=== PATIENT | male | born 1950 | race Caucasian/White ===

== ENCOUNTER 2016-09-19 22:02 | Inpatient (IN) | payer OTHER, BC ==
[~2016-09-19] VITALS: Ht 175.3 cm; Wt 82.2 kg
[~2016-09-19 22:02] MED LIST: FLOMAX0.4 MG PO; PERCOCET 5/31 TABLET PO; ZOFRAN4 MG PO
[2016-09-19 23:21] LABS: ADD MIUA? NO; BILIRUBIN NEGATIVE; BLOOD NEGATIVE; COLOR YELLOW ((YELLOW)); GLUCOSE (STRIP) 50; KETONES NEGATIVE; LEUKOCYTES NEGATIVE; NITRITE NEGATIVE; PROTEIN (STRIP) 30; SPECIFIC GRAVITY 1.011 (1.000-1.030); UCUL ADDED? NO; UROBILINOGEN 0.2 MG/DL (0.2-1.0)
[2016-09-20 00:34] LABS: EOSINOPHIL (%) 0.5 % (0-5); HEMATOCRIT 27.4 % (38.0-50.0); IMMATURE GRANULOCYTE (%) 1.3 % (0.0-0.7); IMMATURE GRANULOCYTE COUNT 0.1 K/uL; INSTRUMENT ABS NEUTROPHIL CT 6.2 K/uL; LYMPHOCYTE COUNT 1.5 K/uL (1.0-2.8); MCH 31.8 PG (29.0-34.0); MCHC 34.7 G/DL (30.0-36.0); MCV 91.6 FL (86-99); MEAN PLAT.VOLUME 9.8 uM^3 (9.0-12.4); MONOCYTE (%) 9.4 % (3-12); MONOCYTE COUNT 0.8 K/uL (0-0.8); NEUTROPHIL COUNT 6.2 K/uL (1.8-6.4); PLATELET COUNT 180 K/uL (156-360); RBC DIS.WIDTH-CV 11.4 % (11.8-14.6); RBC DIS.WIDTH-SD 38.5 % (39-53); RED BLOOD COUNT 2.99 M/uL (4.00-5.50); WHITE BLOOD COUNT 8.7 K/uL (4.1-10.2)
[2016-09-20 00:44] LABS: CHLORIDE 102 mEq/L (99-109); INTER. NORMALIZED RATIO 1.1; POTASSIUM 3.9 mEq/L (3.7-5.4); PTT 26.8 (25-32); SODIUM 133 mEq/L (136-147)
[2016-09-20 00:46] LABS: GLUCOSE 170 mg/dL (70-99)
[2016-09-20 00:48] LABS: ANION GAP 11 MEQ/L (2-14); TOTAL BILIRUBIN 0.8 mg/dL (0.0-1.0)
[2016-09-20 00:50] LABS: ALKALINE PHOSPHATASE 60 IU/L (3-129); GFR ESTIMATE (CALCULATED) > 59 mL/min/
[2016-09-20 00:51] LABS: UREA NITROGEN (BUN) 10 mg/dL (9-23)
[2016-09-20 00:54] LABS: LIPASE 14 U/L (1.0-51.0)
[2016-09-20] MEDS ORDERED: OXYCODONE HCL5 MG PO (01:21)
[2016-09-20] MEDS ORDERED: ASPIRIN325 MG PO (01:21)
[2016-09-20] MEDS ORDERED: TRANSDERM-SCO1 PATCH TD (01:22)
[2016-09-20] MEDS ORDERED: METHOCARBAMOL750 MG PO (01:22)
[2016-09-20] MEDS ORDERED: GABAPENTIN300 MG PO (01:22)
[2016-09-20] MEDS ORDERED: ONDANSETRON ODT8 MG PO (01:23)
[2016-09-20] MEDS ORDERED: OXYCONTIN10 MG PO (01:23)
[2016-09-20] MEDS ORDERED: FLUOXETINE HCL20 MG PO (01:23)
[2016-09-20] MEDS ORDERED: SENNA S TABLET1 EACH PO (01:24)
[2016-09-20] MEDS ORDERED: PAIN RELIEF EX500 MG PO (01:24)
[2016-09-20 06:30] VITALS: BP 113/67
[2016-09-20 06:31] VITALS: BP 113/67
[2016-09-20 07:49] LABS: Estimated Average Glucose 137 mg/dL (70-123); HEMOGLOBIN A1c (GLYCOHEMOGLOB) 6.4 % HGB (Below 5.7)
[2016-09-20 07:59] LABS: HDL CHOLESTEROL 55 MG/DL (Desirable>=40); LDL CHOLESTEROL 57 mg/dL (Desirable<100); NON-HDL CHOLESTEROL 84 mg/dL (Desirable<160); TOTAL CHOLESTEROL 139 mg/dL (Desirable<200); TRIGLYCERIDES 137 MG/DL (Normal: <150)
[2016-09-20 11:04] VITALS: BP 118/69
[2016-09-20 17:21] VITALS: BP 120/70
[2016-09-20 20:00] VITALS: BP 141/85
[2016-09-20 20:34] LABS: HEMATOCRIT 26.9 % (38.0-50.0); MCH 32.4 PG (29.0-34.0); MCHC 35.3 G/DL (30.0-36.0); MCV 91.8 FL (86-99); MEAN PLAT.VOLUME 9.8 uM^3 (9.0-12.4); PLATELET COUNT 227 K/uL (156-360); RBC DIS.WIDTH-CV 11.6 % (11.8-14.6); RBC DIS.WIDTH-SD 39.3 % (39-53); RED BLOOD COUNT 2.93 M/uL (4.00-5.50); WHITE BLOOD COUNT 7.8 K/uL (4.1-10.2)
[2016-09-20 20:37] LABS: ANION GAP 9 MEQ/L (2-14); CHLORIDE 104 MEQ/L (99-109); POTASSIUM 3.7 MEQ/L (3.7-5.4); SAMPLE HEMOLYSIS CHECK 0; SAMPLE ICTERIC CHECK 0; SAMPLE LIPEMIA CHECK 0; SODIUM 136 MEQ/L (136-147); TOTAL BILIRUBIN 0.8 MG/DL (0.0-1.0)
[2016-09-20 20:43] LABS: ALKALINE PHOSPHATASE 56 IU/L (3-129); GFR ESTIMATE (CALCULATED) > 59 mL/min/; GLUCOSE 195 mg/dL (70-99); SERUM ETHYL ALCOHOL < 10 mg/dL; UREA NITROGEN (BUN) 13 mg/dL (9-23)
[2016-09-20 23:43] VITALS: BP 144/85
[2016-09-21 04:08] VITALS: BP 142/92
[2016-09-21 06:47] LABS: HEMATOCRIT 27.2 % (38.0-50.0); MCH 31.3 PG (29.0-34.0); MCHC 34.2 G/DL (30.0-36.0); MCV 91.6 FL (86-99); MEAN PLAT.VOLUME 9.4 uM^3 (9.0-12.4); PLATELET COUNT 231 K/uL (156-360); RBC DIS.WIDTH-CV 11.6 % (11.8-14.6); RED BLOOD COUNT 2.97 M/uL (4.00-5.50); WHITE BLOOD COUNT 8.4 K/uL (4.1-10.2)
[2016-09-21 08:21] VITALS: BP 148/78
[2016-09-21 11:16] VITALS: BP 138/96
[2016-09-21 15:02] VITALS: BP 147/85
[2016-09-21 19:36] VITALS: BP 163/84
[2016-09-21 23:24] VITALS: BP 161/80
[2016-09-22 03:43] VITALS: BP 139/85
[2016-09-22 07:46] VITALS: BP 153/97
[2016-09-22] MEDS ORDERED: POLYETHYLENE GL17 GM PO (10:58)
== END 2016-09-22 12:45 | disposition home or self-care (01) | DRG 947 ==
LOC: EME → EDBD 22:02 → 5SOUTH 09-20 04:52 → EDOF 09-20 04:52 → 5SOUTH 09-20 06:08
PROVIDERS: Emergency Medicine; Hospitalist; Internal Medicine
DX: R41.0 Disorientation, unspecified (principal); G93.40 Encephalopathy, unspecified; E87.2 Acidosis; T48.1X5A Adverse effect of skeletal muscle relaxants [neuromuscular blocking agents], initial encounter; Z96.651 Presence of right artificial knee joint; K59.00 Constipation, unspecified; D64.9 Anemia, unspecified; M19.90 Unspecified osteoarthritis, unspecified site; Z86.19 Personal history of other infectious and parasitic diseases; Z87.442 Personal history of urinary calculi
CPT/HCPCS: 70450; 70551; 71020; 80053; 80061; 80202; 80306 90; 81003; 82140; 82607; 82746; 83036; 83605; 83690; 84443; 85025; 85027; 85610; 85730; 87040; 93005; 93971; 99281; 99285; G0480; J0692; J1630; J1650; J2060; J3370; J7030; J7050; J7120

== ENCOUNTER 2017-09-23 12:34 | Emergency (ER) | payer OTHER, BC ==
[~2017-09-23] VITALS: Ht 175.3 cm; Wt 79.7 kg
[~2017-09-23 12:34] MED LIST changes: +ASPIRIN325 MG PO; +FLUOXETINE HCL20 MG PO; +GABAPENTIN300 MG PO; +METHOCARBAMOL750 MG PO; +ONDANSETRON ODT8 MG PO; +OXYCODONE HCL5 MG PO; +OXYCONTIN10 MG PO; +PAIN RELIEF EX500 MG PO; +POLYETHYLENE GL17 GM PO; +SENNA S TABLET1 EACH PO; +TRANSDERM-SCO1 PATCH TD
[2017-09-23 13:45] LABS: BASOPHIL (%) 0.3 % (0-1); EOSINOPHIL (%) 0.3 % (0-5); HEMATOCRIT 43.9 % (38.0-50.0); HEMOGLOBIN 15.5 G/DL (12.5-16.6); IMMATURE GRANULOCYTE (%) 0.3 % (0.0-0.7); LYMPHOCYTE (%) 26.5 % (15-42); LYMPHOCYTE COUNT 2.1 K/uL (1.0-2.8); MCH 32.2 PG (29.0-34.0); MCHC 35.3 G/DL (30.0-36.0); MCV 91.3 FL (86-99); MONOCYTE (%) 14.1 % (3-12); MONOCYTE COUNT 1.1 K/uL (0-0.8); NEUTROPHIL (%) 58.5 % (45-76); NEUTROPHIL COUNT 4.6 K/uL (1.8-6.4); RBC DIS.WIDTH-CV 11.5 % (11.8-14.6); RBC DIS.WIDTH-SD 38.5 % (39-53); RED BLOOD COUNT 4.81 M/uL (4.00-5.50); WHITE BLOOD COUNT 7.9 K/uL (4.1-10.2)
[2017-09-23 13:59] LABS: ALBUMIN 4.4 g/dL (3.2-4.8); CHLORIDE 102 mEq/L (99-109); POTASSIUM 4.5 mEq/L (3.7-5.4); SODIUM 137 mEq/L (136-147)
[2017-09-23 14:01] LABS: GLUCOSE 119 mg/dL (70-99)
[2017-09-23 14:02] LABS: TOTAL PROTEIN 7.7 g/dL (6.4-8.3)
[2017-09-23 14:03] LABS: TOTAL BILIRUBIN 1.2 mg/dL (0.0-1.0)
[2017-09-23 14:05] LABS: ALKALINE PHOSPHATASE 86 IU/L (3-129); GFR ESTIMATE (CALCULATED) > 59 mL/min/ (58.99-99999)
[2017-09-23 14:06] LABS: UREA NITROGEN (BUN) 12 mg/dL (9-23)
[2017-09-23 14:07] LABS: AST (GOT) 25 IU/L (2-34)
[2017-09-23 14:08] LABS: ALT (GPT) 16 IU/L (3-49)
[2017-09-23 14:17] LABS: PLAT.SUFFICIENCY ADEQUATE; PLATELET CLUMPS PRESENT - PLATELET COUNT APPEARS ADQ.; PLATELET COUNT UNABLE TO REPORT K/uL (156-360)
[2017-09-23] MEDS ORDERED: LORTAB 5-325 M1 EACH PO (14:25)
[2017-09-23] MEDS ORDERED: KEFLEX500 MG PO (14:25)
[2017-09-23 15:15] LABS: APPEARANCE CLEAR ((CLEAR)); BILIRUBIN NEGATIVE; BLOOD NEGATIVE; COLOR YELLOW ((YELLOW)); GLUCOSE (STRIP) NEGATIVE; KETONES NEGATIVE; LEUKOCYTES NEGATIVE; NITRITE NEGATIVE; PROTEIN (STRIP) NEGATIVE; SPECIFIC GRAVITY 1.012 (1.000-1.030); UCUL ADDED? NO
[2017-09-23] MEDS ORDERED: TESSALON PERLE100 MG PO (15:36)
[2017-09-23 16:06] VITALS: BP 140/74
== END 2017-09-23 16:09 | disposition home or self-care (01) ==
LOC: EME 12:34
PROVIDERS: Physician Assistant Medical
DX: J40 Bronchitis, not specified as acute or chronic (principal); F32.9 Major depressive disorder, single episode, unspecified; B19.20 Unspecified viral hepatitis C without hepatic coma; Z87.442 Personal history of urinary calculi; Z79.82 Long term (current) use of aspirin
CPT/HCPCS: 80053; 81003; 85025; 99281; 99285; J7030

== ENCOUNTER 2018-02-19 12:44 | Emergency (ER) | payer BC ==
[~2018-02-19] VITALS: Ht 175.3 cm; Wt 78.0 kg
[~2018-02-19 12:44] MED LIST changes: +KEFLEX500 MG PO; +LORTAB 5-325 M1 EACH PO; +TESSALON PERLE100 MG PO
[2018-02-19] MEDS ORDERED: VENLAFAXINE HC150 M1 PO (13:05)
[2018-02-19] MEDS ORDERED: PREDNISONE20 MG PO (13:09)
[2018-02-19] MEDS ORDERED: PREDNISONE10 M1 PO (13:23)
[2018-02-19 14:05] VITALS: BP 138/80
== END 2018-02-19 14:05 | disposition home or self-care (01) ==
LOC: EME 12:44
DX: L23.7 Allergic contact dermatitis due to plants, except food (principal); B19.20 Unspecified viral hepatitis C without hepatic coma; Z79.82 Long term (current) use of aspirin; Z86.79 Personal history of other diseases of the circulatory system; Z87.438 Personal history of other diseases of male genital organs; Z87.442 Personal history of urinary calculi
CPT/HCPCS: 99281; 99283